=== PATIENT | female | born 1980 | race Two or more races ===

== ENCOUNTER 2022-06-29 21:37 | Emergency (ER) | payer BC, OTHER ==
[~2022-06-29] VITALS: Ht 162.6 cm; Wt 65.8 kg
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
--- NOTE | 2022-06-29 23:24 | NUR ---
SEEN BY DR BENTON AT BEDSIDE
[2022-06-29] MEDS ORDERED: IBUPROFEN 400 MG TABLET ONE (23:37)
--- NOTE | 2022-06-29 23:45 | NUR ---
WAIVER SIGNED FOR NOT BEING .
[2022-06-30] MEDS ORDERED: IBUPROFEN 400 MG TABLET PO ONE
--- NOTE | 2022-06-30 00:05 | NUR ---
XRAY DONE AT BEDSIDE
--- NOTE | 2022-06-30 01:03 | NUR ---
Patient discharged to home in stable condition. Written and verbal after care instructions given. Patient verbalizes understanding of instruction. IS RIDING UBER TO [employer]OTOGR[employer]HY COLORIST PATIENT.
[2022-06-30 01:04] VITALS: BP 134/71
== END 2022-06-30 01:04 | disposition home or self-care (01) ==
LOC: ER 21:40
DX: S20.212A Contusion of left front wall of thorax, initial encounter (principal); Z88.0 Allergy status to penicillin; Z88.2 Allergy status to sulfonamides; V89.2XXA Person injured in unspecified motor-vehicle accident, traffic, initial encounter; Y93.89 Activity, other specified; Y92.89 Other specified places as the place of occurrence of the external cause; Y99.8 Other external cause status
CPT/HCPCS: 71045-TC

== ENCOUNTER 2022-09-16 12:35 | Emergency (ER) | payer OTHER ==
[~2022-09-16] VITALS: Ht 162.6 cm; Wt 65.8 kg
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
[2022-09-16] MEDS ORDERED: CLIN300C12 PO (13:06)
[2022-09-16] MEDS ORDERED: SULF1TAB48 PO (13:06)
--- NOTE | 2022-09-16 13:25 | NUR ---
Patient discharged to home in stable condition. Written and verbal after care instructions given. Patient verbalizes understanding of instruction.
[2022-09-16 13:29] VITALS: BP 120/80
== END 2022-09-16 13:25 | disposition home or self-care (01) ==
LOC: ER 12:40
DX: S61.431A Puncture wound without foreign body of right hand, initial encounter (principal); Z88.8 Allergy status to other drugs, medicaments and biological substances; W54.0XXA Bitten by dog, initial encounter; Y93.89 Activity, other specified; Y92.89 Other specified places as the place of occurrence of the external cause; Y99.8 Other external cause status

== ENCOUNTER 2024-02-19 15:41 | Emergency (ER) | payer OTHER, BC ==
[~2024-02-19] VITALS: Ht 160 cm; Wt 65.8 kg
[~2024-02-19 15:41] MED LIST: CLIN300C12 PO; SULF1TAB48 PO
[2024-02-19] MEDS ORDERED: HYDR-3980 PO (16:57)
[2024-02-19 17:04] VITALS: BP 106/70; TEMP 98.8; O2SAT 99
== END 2024-02-19 17:04 | disposition home or self-care (01) ==
LOC: ER 15:50
DX: S67.21XA Crushing injury of right hand, initial encounter (principal); Z87.39 Personal history of other diseases of the musculoskeletal system and connective tissue; Z86.59 Personal history of other mental and behavioral disorders; Z87.19 Personal history of other diseases of the digestive system; Z98.890 Other specified postprocedural states; Z88.2 Allergy status to sulfonamides; W23.0XXA Caught, crushed, jammed, or pinched between moving objects, initial encounter; Y93.89 Activity, other specified; Y92.89 Other specified places as the place of occurrence of the external cause; Y99.8 Other external cause status
CPT/HCPCS: 73130-TC

== ENCOUNTER 2024-05-07 15:22 | Emergency (ER) | payer OTHER, BC ==
[~2024-05-07] VITALS: Ht 162.6 cm; Wt 63.5 kg
[~2024-05-07 15:22] MED LIST changes: +HYDR-3980 PO
[2024-05-07] MEDS ORDERED: ACETAMINOPHEN 325 MG TABLET ONE (16:02)
[2024-05-07] MEDS: ACETAMINOPHEN 325 MG TABLET PO ONE (16:04)
[2024-05-07 17:32] LABS: PREGNANCY TEST URINE QUAL NEGATIVE (NEGATIVE)
[2024-05-07 17:35] VITALS: BP 116/77; TEMP 98.2; O2SAT 98
== END 2024-05-07 17:35 | disposition home or self-care (01) ==
LOC: ER 15:26
DX: S80.211A Abrasion, right knee, initial encounter (principal); M25.571 Pain in right ankle and joints of right foot; M25.572 Pain in left ankle and joints of left foot; W19.XXXA Unspecified fall, initial encounter; Y92.89 Other specified places as the place of occurrence of the external cause; Y99.8 Other external cause status; Z88.0 Allergy status to penicillin; Z88.2 Allergy status to sulfonamides; Z98.890 Other specified postprocedural states
CPT/HCPCS: 73610-TC; 84703-TC

== ENCOUNTER 2024-05-14 09:53 | Emergency (ER) | payer BC, OTHER ==
[~2024-05-14] VITALS: Ht 154.9 cm; Wt 65.8 kg
[2024-05-14 10:01] VITALS: BP 126/74; TEMP 98.5; O2SAT 97
[2024-05-14] MEDS: LIDOCAINE 1%-EPI 1:100,000 50 ML VIAL IJ ONE (11:15)
== END 2024-05-14 11:19 | disposition home or self-care (01) ==
LOC: ER 09:58
DX: S90.851A Superficial foreign body, right foot, initial encounter (principal); Z88.0 Allergy status to penicillin; Z88.2 Allergy status to sulfonamides; Z98.890 Other specified postprocedural states; Z87.19 Personal history of other diseases of the digestive system; Z86.59 Personal history of other mental and behavioral disorders; W45.8XXA Other foreign body or object entering through skin, initial encounter; Y93.89 Activity, other specified; Y92.89 Other specified places as the place of occurrence of the external cause; Y99.8 Other external cause status
CPT/HCPCS: 99284; J3490

== ENCOUNTER 2024-08-08 21:35 | Emergency (ER) | payer BC, OTHER ==
[~2024-08-08] VITALS: Ht 157.5 cm; Wt 56.7 kg
[2024-08-08 21:35] VITALS: TEMP 98.1
[2024-08-08 23:03] VITALS: BP 125/80; O2SAT 98
== END 2024-08-08 23:04 | disposition home or self-care (01) ==
LOC: ER 21:39
DX: Z77.098 Contact with and (suspected) exposure to other hazardous, chiefly nonmedicinal, chemicals (principal); H53.8 Other visual disturbances; Z88.0 Allergy status to penicillin; Z88.2 Allergy status to sulfonamides; Z98.890 Other specified postprocedural states
CPT/HCPCS: 99283; A6403

== ENCOUNTER 2025-04-10 13:32 | Emergency (ER) | payer SELFPAY ==
[~2025-04-10] VITALS: Ht 162.6 cm; Wt 47.6 kg
[2025-04-10 14:00] VITALS: TEMP 98.3
--- NOTE | 2025-04-10 14:04 | NUR ---
wm cotto at bedside
[2025-04-10] MEDS ORDERED: KETOROLAC TROMETHAMINE 15 MG/ML VIAL ONE (14:48)
[2025-04-10] MEDS: KETOROLAC TROMETHAMINE 15 MG/ML VIAL IM ONE (14:56)
[2025-04-10] MEDS ORDERED: ACET325C7 PO (15:28)
[2025-04-10] MEDS ORDERED: HYDR-3976 PO (15:28)
[2025-04-10] MEDS ORDERED: HYDROCODONE/APAP 7.5/325MG 1 EACH TABLET PO ONE (15:30)
[2025-04-10] MEDS ORDERED: HYDROCODONE/APAP 10/325MG TABLET ONE (15:35)
[2025-04-10] MEDS: HYDROCODONE/APAP 10/325MG TABLET PO ONE (15:42)
[2025-04-10] MEDS ORDERED: HYDR-4279 PO (15:43)
--- NOTE | 2025-04-10 16:15 | NUR ---
Patient discharged to home in stable condition. Written and verbal after care instructions given. Patient verbalizes understanding of instruction. Assisted to waiting room to wait for uber. Instructed not to drive
[2025-04-10 16:19] VITALS: BP 110/64; O2SAT 99
== END 2025-04-10 16:16 | disposition home or self-care (01) ==
LOC: ER 13:34
DX: S92.354A Nondisplaced fracture of fifth metatarsal bone, right foot, initial encounter for closed fracture (principal); Z88.0 Allergy status to penicillin; Z88.2 Allergy status to sulfonamides; Z98.84 Bariatric surgery status; Z98.890 Other specified postprocedural states; W01.0XXA Fall on same level from slipping, tripping and stumbling without subsequent striking against object, initial encounter; Y93.89 Activity, other specified; Y92.89 Other specified places as the place of occurrence of the external cause; Y99.9 Unspecified external cause status
CPT/HCPCS: 29515; 73630; 96372; 99283; J1885